=== PATIENT | male | born 1960 | race Caucasian/White ===

== ENCOUNTER 2020-12-22 10:31 | Emergency (ER) | payer OTHER ==
[~2020-12-22] VITALS: Ht 172.7 cm; Wt 88.4 kg
--- NOTE | 2020-12-22 10:44 | NUR ---
EKG DONE IN [facility]. AMBULATORY TO ROOM. CHANGED INTO GOWN. PLACED ON ALL MONTIORS. AWARE OF NPO STATUS.
[2020-12-22] MEDS ORDERED: SODIUM CHLORIDE 0.9% 1,000ML IVBOLUS ONE (11:00)
[2020-12-22] MEDS ORDERED: PLEASE ENTER ALLERGIES MC SCH (11:00)
[2020-12-22] MEDS ORDERED: LABETALOL 5MG/ML, 20ML IVPush ONE (11:00)
[2020-12-22 11:01] LABS: BASOPHILS % (AUTO) 1 % (0-1); EOSINOPHILS % (AUTO) 1 % (1-7); LYMPHOCYTES % (AUTO) 14 % (22-44); MEAN CORPUSCULAR HEMOGLOBIN 30.6 pg (27.5-34.5); MEAN CORPUSCULAR HGB CONC 34.4 g/dL (33.2-36.2); MEAN PLATELET VOLUME 8.6 fL (7.4-10.4); MONOCYTES % (AUTO) 5 % (2-9); NEUTROPHILS % (AUTO) 80 % (42-75); PLATELET COUNT 243 x10^3/uL (130-400); RED CELL DISTRIBUTION WIDTH 13.1 % (9.4-14.8)
[2020-12-22] MEDS ORDERED: LABETALOL 5MG/ML, 20ML ONE (11:06)
[2020-12-22 11:15] LABS: ANION GAP 7 mmol/L (5-15); CHLORIDE 106 mmol/L (98-107); CREATININE 1.12 mg/dL (0.7-1.3)
[2020-12-22 11:19] LABS: TROPONIN I < 0.015 ng/mL (0.000-0.045)
--- NOTE | 2020-12-22 11:46 | NUR ---
PT TO CTA VIA GURNEY AT THIS TIME.
--- NOTE | 2020-12-22 11:53 | NUR ---
PT BIB SELF. PER PT HE HAS HAD CP THAT RADIATES TO HIS JAW AND LEFT SHOULDER FOR TWO DAYS. PT STATES HE ALSO HAS FELT LIKE HIS HEART WAS BEATING REALLY FAST. PT RESTING IN [facility], EKG DONE UPON ARRIVAL, MONITORING IN PLACE, PIV PLACED UPON ARRIVAL, ANALIAN AT THIS TIME, PT STATES HE HAS NO NEEDS, WCTM.
[2020-12-22] MEDS ORDERED: OMNIPAQUE 350 MG/ML, 75ML BOTTLE ONE (12:56)
[2020-12-22 13:13] LABS: TROPONIN I < 0.015 ng/mL (0.000-0.045)
--- NOTE | 2020-12-22 13:19 | NUR ---
REPORT TO KAILA UREÑA.
[2020-12-22 14:03] VITALS: BP 167/110
--- NOTE | 2020-12-22 14:13 | NUR ---
PT REC'VD DISCHARGE INSTRUCTIONS AND EDUCATION. PT HAD NO FURTHER QUESTIONS. PT AMBULATED TO DC AREA, STEADY GAIT.
== END 2020-12-22 15:18 | disposition home or self-care (01) ==
LOC: ED 14:10
DX: I10 Essential (primary) hypertension (principal); R00.0 Tachycardia, unspecified; R07.89 Other chest pain; R42 Dizziness and giddiness; M79.602 Pain in left arm
CPT/HCPCS: 36415; 71275; 80048; 82040; 83880; 84484; 85025; 85379; 93005; 96361; 96374; 99285; J7030; Q9967